=== PATIENT | male | born 1960 | race Caucasian/White ===

== ENCOUNTER 2019-12-02 10:21 | Inpatient (IN) | payer OTHER ==
[~2019-12-02 10:21] MED LIST: Lactated Ringers 1000 ml BAG 1,000 ML IV SCH; ceFAZolin 2 GM PREMIX 2 GM/50 ML BAG ONE
[2019-12-02] MEDS ORDERED: Lidocaine 2% PF 5 ML VIAL ONE (10:46)
[2019-12-02] MEDS ORDERED: Succinylcholine 200 mg VIAL 20 mg/ml 10 ml VIAL (200 mg) ONE (10:46)
[2019-12-02] MEDS ORDERED: Midazolam 2 mg/2 ml VIAL 1 mg/ml 2 ml VIAL (2 mg) ONE ×3 (10:47→15:05)
[2019-12-02] MEDS ORDERED: ROPIVACAINE 5 MG/ML 30 ML BTL (0.5%) ONE ×2 (12:14→12:15)
[2019-12-02] MEDS ORDERED: Lidocaine 1% MPF 5 ML VIAL ONE (12:16)
[2019-12-02] MEDS ORDERED: Bupivacaine 0.5% SDV PF 30ML VIAL ONE (12:19)
[2019-12-02] MEDS ORDERED: Ketamine HCL 50 mg/ml 10 ml VIAL (500 MG) ONE (13:24)
[2019-12-02] MEDS ORDERED: HYDROmorphone 1 MG/1 ML SYRINGE IV PRN (14:03)
[2019-12-02] MEDS ORDERED: Naloxone 0.4 mg VIAL 0.4 mg/ml 1 ml VIAL IV PRN (14:03)
[2019-12-02] MEDS ORDERED: Metoclopramide 5 MG/ML VIAL (10 mg) IV PRN (14:03)
[2019-12-02] MEDS ORDERED: Phenylephrine 40 mcg/mL 10mL (400mcg) SYRINGE ONE (14:33)
[2019-12-02] MEDS ORDERED: Phenylephrine IV 10 MG/ML 1 ml VIAL ONE (14:41)
[2019-12-02] MEDS ORDERED: Propofol 10 MG/ML 20 ML BTL ONE ×3 (15:04→15:07)
[2019-12-02] MEDS ORDERED: EPHEDrine (Pressors) 50 MG/ML VIAL ONE (15:05)
[2019-12-02] MEDS ORDERED: Ondansetron ODT 4 mg TAB 4 MG TAB PO PRN ×2 (16:09→16:20)
[2019-12-02] MEDS ORDERED: diPHENhydraMINE IV 50 MG/ML 1 ml VIAL (BENADRYL) IV PRN ×2 (16:09→16:20)
[2019-12-02] MEDS ORDERED: Magnesium Hydroxide LIQ 30 ML UDC PO PRN ×2 (16:09→16:20)
[2019-12-02] MEDS ORDERED: Lactulose 30 ml UDC PO PRN ×2 (16:09→16:20)
[2019-12-02] MEDS ORDERED: diPHENhydraMINE 25 mg TAB PO PRN ×2 (16:09→16:20)
[2019-12-02] MEDS ORDERED: Ondansetron 4 mg VIAL 2 MG/ML 2 ml VIAL IV PRN ×2 (16:09→16:20)
[2019-12-02] MEDS ORDERED: oxyCODONE/Acetamin 5/325 mg TAB PO PRN (16:20)
[2019-12-02] MEDS ORDERED: ceFAZolin 1 GM in Dextrose 1 GM/50 ML BAG IVPB SCH (17:00)
[2019-12-02] MEDS ORDERED: Lactated Ringers 1000 ml BAG 1,000 ML IV SCH (17:00)
[2019-12-02] MEDS: oxyCODONE/Acetamin 5/325 mg TAB PO PRN ×2 (18:43→22:51)
[2019-12-02] MEDS ORDERED: HYDROmorphone 1 MG/1 ML SYRINGE IV ONE (19:20)
[2019-12-02] MEDS ORDERED: Morphine 2 MG/ML SYRINGE IV PRN (19:20)
[2019-12-02] MEDS ORDERED: HYDROmorphone 1 MG/1 ML SYRINGE ONE (19:21)
[2019-12-02] MEDS: Magnesium Hydroxide LIQ 30 ML UDC PO SCH (20:12)
[2019-12-02] MEDS: ceFAZolin 1 GM* X 3 DOSES POST-OP Q8H (AddVan) IVPB SCH (20:49)
[2019-12-02] MEDS ORDERED: Magnesium Hydroxide LIQ 30 ML UDC PO SCH (21:00)
[2019-12-03] MEDS: oxyCODONE/Acetamin 5/325 mg TAB PO PRN ×3 (04:53→16:01)
[2019-12-03] MEDS: ceFAZolin 1 GM* X 3 DOSES POST-OP Q8H (AddVan) IVPB SCH ×2 (04:53→12:44)
[2019-12-03 06:11] LABS: Hematocrit 42 % (42-52); Hemoglobin 14.9 g/dL (14.0-18.0); Mean Platelet Volume 7.8 fL (7.4-10.4); Platelet Count 205 10^3/uL (150-450)
[2019-12-03 06:27] LABS: BUN/Creatinine Ratio 18.5 (8-20); Calcium 8.9 mg/dL (8.6-10.3); EGFR African American 102.2 (>60); EGFR Non-African American 84.5 (>60); Potassium 4.3 mmol/L (3.5-5.0)
[2019-12-03] MEDS: Magnesium Hydroxide LIQ 30 ML UDC PO SCH (08:50)
[2019-12-03] MEDS ORDERED: Vitamin THERAPEUTIC TAB PO SCH (09:00)
[2019-12-03 16:25] VITALS: BP 115/70
== END 2019-12-03 16:45 | disposition home or self-care (01) ==
LOC: SSU 10:21 → OR 10:21 → EDSTATUS 14:00
PROVIDERS: ADMIT Orthopaedic Surgery Adult Reconstructive Orthopaedic Surgery; ATTEND Orthopaedic Surgery Adult Reconstructive Orthopaedic Surgery